=== PATIENT | male | born 1980 | race African-American/Black ===

== ENCOUNTER 2020-11-13 02:05 | Emergency (ER) | payer SELFPAY ==
[~2020-11-13] VITALS: Ht 190.5 cm; Wt 86.4 kg
[2020-11-13 02:57] LABS: BASO % 1 % (0-3); EOS # 0.1 x10^3/uL (0.0-0.7); EOS % 2 % (0-3); HEMATOCRIT 49.9 % (39.0-53.0); LYMPH # 1.2 x10^3/uL (1.0-4.8); LYMPH % 31 % (24-48); MEAN CORPUSCULAR HEMOGLOBIN 30 pg (25-35); MEAN CORPUSCULAR HGB CONC 34 g/dL (31-37); MEAN CORPUSCULAR VOLUME 88 fL (79-100); MONO # 0.4 x10^3/uL (0.0-1.1); MONO % 11 % (0-9); NEUT # 2.2 x10^3/uL (1.8-7.7); NEUT % 56 % (31-73); PLATELET COUNT 209 x10^3/uL (140-400); RED BLOOD COUNT 5.66 x10^6/uL (4.30-5.70); RED CELL DISTRIBUTION WIDTH 14.5 % (11.5-14.5); WHITE BLOOD COUNT 3.9 x10^3/uL (4.0-11.0)
[2020-11-13 03:05] LABS: CALCIUM 8.3 mg/dL (8.5-10.1); CREATININE 1.2 mg/dL (0.7-1.3); GFR 67.4; POTASSIUM 3.9 mmol/L (3.5-5.1)
--- NOTE | 2020-11-13 03:28 | RAD ---
INDICATION: Reason: sob, palpitations / Spl. Instructions: / History: COMPARISON: None. FINDINGS: 2 view of chest obtained. No focal airspace consolidation. Cardiomediastinal contour unremarkable. No acute osseous abnormality. IMPRESSION: * No focal airspace consolidation or edema. Electronically signed by: Glen Schneider MD (11/13/2020 3:26 AM) [id number]
[2020-11-13] MEDS ORDERED: IV NORMAL SALINE 1000ML BAG 1,000 ML IV ONE (04:00)
[2020-11-13 04:48] VITALS: BP 142/79
--- NOTE | 2020-11-13 04:51 | ED.ADGEN ---
Past Medical History Past Medical History: Cancer Additional Past Medical Histor: RIGHT KIDNEY CA Past Surgical History: Other Additional Past Surgical Histo: RIGHT KIDNEY REMOVAL Smoking Status: Current Every Day Smoker Alcohol Use: Occasionally General Adult EDM: Chief Complaint: SHORTNESS OF BREATH HPI: HPI: Patient is a 40-year-old male who presents to the emergency room complaining of intermittent palpitations. Patient states that he has these episodes where he feels like his heart is beating really fast and during these he gets dizzy and has shortness of breath. After they pass he feels better. He states that he had several episodes this evening. This is been going on intermittently for the last year. He denies any cough, URI symptoms, abdominal pain, nausea, vomiting, change in taste, change in smell. He has not been following up with his primary care physician. He has not been taking his blood pressure medications Review of Systems: Review of Systems: Complete ROS is negative unless otherwise documented in HPI Current Medications: Current Medications Medications (Trade) Dose Ordered Sig/Aleida Start Time Stop Time Status Last Admin Dose Admin Sodium Chloride 1,000 ml @ 1,000 mls/hr 1X ONCE 11/13/20 04:00 11/13/20 04:59 11/13/20 04:00 1,000 MLS/HR Allergies: Allergies: Allergies Coded Allergies Type Severity Reaction Last Updated Verified Unable to Assess 11/13/20 No Physical Exam: PE: General: Awake, alert, NAD. Well Nourished, well hydrated. Cooperative HEENT: Atraumatic, EOMI, PERRL, airway patent, moist oral mucosa Neck: Supple, trachea midline Respiratory: CTA bilaterally, normal effort, no wheezing/crackles CV: RRR, no murmur, cap refill <2 GI: Soft, nondistended, nontender, no masses MSK: No obvious deformities Skin: Warm, dry, intact Neuro: A&O x3, speech NL, sensory and motor grossly intact, no focal deficits Psych: Normal affect, normal mood, not suicidal or homicidal Current Patient Data: Labs: Laboratory Tests Test 11/13/20 02:26 White Blood Count 3.9 x10^3/uL (4.0-11.0) L Red Blood Count 5.66 x10^6/uL (4.30-5.70) Hemoglobin 17.0 g/dL (13.0-17.5) Hematocrit 49.9 % (39.0-53.0) Mean Corpuscular Volume 88 fL (79-100) Mean Corpuscular Hemoglobin 30 pg (25-35) Mean Corpuscular Hemoglobin Concent 34 g/dL (31-37) Red Cell Distribution Width 14.5 % (11.5-14.5) Platelet Count 209 x10^3/uL (140-400) Neutrophils (%) (Auto) 56 % (31-73) Lymphocytes (%) (Auto) 31 % (24-48) Monocytes (%) (Auto) 11 % (0-9) H Eosinophils (%) (Auto) 2 % (0-3) Basophils (%) (Auto) 1 % (0-3) Neutrophils # (Auto) 2.2 x10^3/uL (1.8-7.7) Lymphocytes # (Auto) 1.2 x10^3/uL (1.0-4.8) Monocytes # (Auto) 0.4 x10^3/uL (0.0-1.1) Eosinophils # (Auto) 0.1 x10^3/uL (0.0-0.7) Basophils # (Auto) 0.0 x10^3/uL (0.0-0.2) D-Dimer (Fabiola) 0.38 ug/mlFEU (0.00-0.50) Sodium Level 147 mmol/L (136-145) H Potassium Level 3.9 mmol/L (3.5-5.1) Chloride Level 108 mmol/L (98-107) H Carbon Dioxide Level 28 mmol/L (21-32) Anion Gap 11 (6-14) Blood Urea Nitrogen 12 mg/dL (8-26) Creatinine 1.2 mg/dL (0.7-1.3) Estimated GFR (Cockcroft-Gault) 67.4 Glucose Level 110 mg/dL (70-99) H Calcium Level 8.3 mg/dL (8.5-10.1) L Troponin I Quantitative < 0.017 ng/mL (0.000-0.055) Thyroid Stimulating Hormone (TSH) 0.990 uIU/mL (0.358-3.74) Laboratory Tests 11/13/20 02:26 Laboratory Tests 11/13/20 02:26 Vital Signs: Vital Signs Date Time Temp Pulse Resp B/P (MAP) Pulse Ox O2 Delivery O2 Flow Rate FiO2 11/13/20 02:15 97.8 102 18 175/102 (126) 98 Room Air 97.8 EKG: EKG: [] Heart Score: Risk Factors: Risk Factors: DM, Current or recent (<one month) smoker, HTN, HLP, family history of CAD, obesity. Risk Scores: Score 0 - 3: 2.5% MACE over next 6 weeks - Discharge Home Score 4 - 6: 20.3% MACE over next 6 weeks - Admit for Clinical Observation Score 7 - 10: 72.7% MACE over next 6 weeks - Early Invasive Strategies Radiology/Procedures: Radiology/Procedures: [] Course & Med Decision Making: Course & Med Decision Making Pertinent Labs and Imaging studies reviewed. (See chart for details) Patient is a 50-year-old male who presents to the emergency room complaining of palpitations with associated shortness of breath and weakness. Patient is overall well-appearing. EKG is normal at this time. Lab work was ordered and patient has some very mild hyponatremia. He was given fluids here in the emergency room. He was monitored for couple of hours without any arrhythmias. I have discussed with him that he should follow-up with his primary care physician to determine if he needs to see a interior mechanic for follow-up. Patient is feeling better and would like to go home. Patient's test results and vitals while in the ED were fully reviewed and discussed with the patient. Patient is stable and at this time does not need admission to the hospital. We have discussed strict return precautions and the importance of following up with their Primary Care Physician. Patient stated understanding and was given an opportunity to ask any questions. Patient is in agreement with plan. Dragon Disclaimer: Dragon Disclaimer: This electronic medical record was generated, in whole or in part, using a voice recognition dictation system. Departure Departure Impression: Primary Impression: Hypernatremia Additional Impression: Palpitations Disposition: 01 DC HOME SELF CARE/HOMELESS Condition: STABLE Referrals: NO PCP (PCP) Patient Instructions: Hypernatremia, Palpitations Problem Qualifiers ALEKSANDER CORTEZ MD Nov 13, 2020 04:51
--- NOTE | 2020-11-13 14:55 | EKG ---
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
== END 2020-11-13 05:10 | disposition home or self-care (01) ==
LOC: ER 02:05
DX: E87.0 Hyperosmolality and hypernatremia (principal); R00.2 Palpitations; R06.02 Shortness of breath; R42 Dizziness and giddiness; F17.200 Nicotine dependence, unspecified, uncomplicated; Z98.890 Other specified postprocedural states; Z85.528 Personal history of other malignant neoplasm of kidney
CPT/HCPCS: 36415; 71046; 80048; 84443; 84484; 85025; 85379; 93005; 96360; 99285; J7030